=== PATIENT | female | born 1940 | race Caucasian/White ===

== ENCOUNTER 2018-06-06 17:29 | Observation (INO) ==
[2018-06-06 19:26] LABS: BASO# 0.06 X1000 (0.0-0.2); BASO% 0.7 % (0.0-0.8); EOS# 0.25 X1000 (0.0-0.7); HEMATOCRIT 39.5 % (37.0-47.0); HEMOGLOBIN 13.1 g/dL (12.0-16.0); LYMPH# 2.59 X1000 (1.2-3.4); LYMPH% 31.5 % (20.5-51.1); MCH 27.8 PG (27-31); MCHC 33.2 g/dL (33-37); MCV 83.7 FL (81-99); MONO% 7.3 % (1.7-9.3); MPV 10.9 FL (7.4-10.4); NEUT# 4.71 X1000 (1.4-6.5); NEUT% 57.5 % (42.2-75.2); PLT 203 X1000 (130-400); RBC 4.72 XMIL (4.2-5.4); RDW 14.1 % (11.5-14.5); WBC 8.21 X1000 (4.8-10.8)
[2018-06-06 19:33] LABS: INR 1.02; PROTIME 14.2 Seconds (11.0-16.0)
[2018-06-06 19:34] LABS: PTT 29.6 Seconds (22.3-41.8)
[2018-06-06 19:38] LABS: ALB/GLOB RATIO 1.6; CALCIUM 9.7 mg/dL (8.8-10.2); CREATININE 1.2 mg/dL (0.5-0.9); POTASSIUM 4.1 mmol/L (3.5-5.1); TOTAL BILIRUBIN 0.32 mg/dL (0.20-1.00); TOTAL PROTEIN 6.5 g/dL (6.3-8.3)
--- NOTE | 2018-06-06 19:50 | Diag Imaging Result Doc PS360 ---
CHEST-2 VIEWS - 06/06/2018 INDICATION: CHEST PAIN COMPARISON: 02/04/2018 FINDINGS: Stable surgical changes to the heart. Heart size is top normal. Pulmonary vascularity is normal. No infiltrates or edema. No pneumothorax or pleural effusion. Stable mild linear scarring in the lung bases. IMPRESSION: No acute process. Electronically signed by Israel Dwyer 06/06/2018 7:48 PM
--- NOTE | 2018-06-06 21:44 | HISTORY AND PHYSICAL ---
PRIMARY CARE PHYSICIAN: Dr. Alvarez. CHIEF COMPLAINT: Chest pain. HISTORY OF PRESENTING ILLNESS: A 77-year-old female with a history of hypertension, coronary artery disease, diabetes mellitus type 2, and CVA who had presented to emergency department 1-day history of having substernal chest pain. She described it as heaviness and spread throughout her chest pain and was mildly short of breath. She states the symptoms were worsening and subsequently she had come to the emergency department. At the ED she was evaluated and due to her presenting symptoms, it was thought that we will place her for observation for further evaluation management. Time of my examination patient denied any headache, fever, chills, hemoptysis, melena, or any weight changes but complained chest pain, shortness of breath. PAST MEDICAL HISTORY: Includes hypertension, CVA, diabetes mellitus type 2, coronary artery disease, hyperlipidemia. PAST SURGICAL HISTORY: Coronary bypass, abdominal surgeries, hysterectomy, cholecystectomy, right knee replacement. ALLERGIES: No known drug allergies. CURRENT MEDICATIONS: Include aspirin 325 mg p.o. daily, metoprolol 50 mg p.o. daily. SOCIAL HISTORY: She is a former smoker. No history of alcohol or illicit drug use. FAMILY HISTORY: Positive coronary disease mother. REVIEW OF SYSTEMS: Fourteen point review of systems is as in HPI. Other systems negative. PHYSICAL EXAM: GENERAL: Cooperative friendly female, she is resting more comfortably now. VITAL SIGNS: Temperature 98.2 degrees, pulse 115, respiration 18, blood pressure 139/81, saturating 96%. HEENT: Atraumatic, normocephalic. Extraocular movements intact. PERRLA. NECK: No masses. CHEST: Clear to auscultation. CARDIOVASCULAR: Regular rate and rhythm. ABDOMEN: Soft. Positive bowel sounds. EXTREMITIES: No edema. NEUROLOGIC: She is awake, alert, oriented x3. : No bladder distention. SKIN: Warm. LABORATORIES AND STUDIES: WBC is 8.21, hemoglobin 13.1, hematocrit 39.5, platelets 203,000. Sodium 140, potassium 4.1, chloride 103, CO2 22, BUN is 23, creatinine is 1.2, glucose 242, troponin 0.010. ASSESSMENT: A 77-year-old female with a history of hypertension, cerebrovascular accident, diabetes mellitus type 2, coronary artery disease who had presented to emergency department 1-day history of chest pain. She was evaluated in the emergency department. Due to presenting symptoms, she will be placed in observation for further evaluation management. 1. Chest pain. 2. Coronary artery disease. 3. Hypertension. 4. Diabetes mellitus type 2. PLAN: 1. We will admit patient to medical floor with telemetry. 2. Continue with cardiac workup. Check EKG, serial cardiac enzymes. Have patient continue on aspirin. We will use sublingual nitroglycerin and morphine p.r.n. chest pain. 3. We will consult Cardiology. 4. Monitor blood pressure closely. Resume antihypertensive agents. 5. We will put patient on glycemic protocol with sliding scale insulin regimen. Check a hemoglobin A1c. 6. Put patient on DVT prophylaxis SCD. 7. We will continue to follow and reassess. Make further recommendation based on patient's clinical course. cc: Dusty Srivastava MD MTDD
[2018-06-06] MEDS ORDERED: TYLENOL PO PRN (22:20)
[2018-06-06] MEDS ORDERED: NITROGLYCERIN SL PRN (22:20)
[2018-06-06] MEDS ORDERED: ZOFRAN IV PRN (22:20)
[2018-06-07] MEDS: PRILOSEC PO SCH (05:59)
[2018-06-07] MEDS: HUMULIN R SUBQ SCH ×4 (05:59→21:41)
[2018-06-07 06:36] LABS: BASO# 0.06 X1000 (0.0-0.2); BASO% 0.9 % (0.0-0.8); EOS# 0.34 X1000 (0.0-0.7); EOS% 5.3 % (0.0-10.0); HEMATOCRIT 38.3 % (37.0-47.0); HEMOGLOBIN 12.5 g/dL (12.0-16.0); LYMPH# 2.39 X1000 (1.2-3.4); LYMPH% 37.5 % (20.5-51.1); MCH 27.7 PG (27-31); MCHC 32.6 g/dL (33-37); MCV 84.7 FL (81-99); MONO# 0.65 X1000 (0.11-0.59); MONO% 10.2 % (1.7-9.3); MPV 10.4 FL (7.4-10.4); NEUT# 2.94 X1000 (1.4-6.5); NEUT% 46.1 % (42.2-75.2); PLT 199 X1000 (130-400); RBC 4.52 XMIL (4.2-5.4); RDW 14.1 % (11.5-14.5); WBC 6.38 X1000 (4.8-10.8)
[2018-06-07 07:01] LABS: CHOLESTEROL 218 mg/dL (0-200); HDL 39 mg/dL (45-65); LDL 137 mg/dL; TRIGLYCERIDES 212 mg/dL (35-135); VLDL 42 mg/dL
--- NOTE | 2018-06-07 09:44 | EKG Report ---
Test Performed on : 06/06/2018 5:32:14 PM Test Reason : CHEST PAIN Blood Pressure : / mmHG Vent. Rate : 105 BPM Atrial Rate : 105 BPM P-R Int : 166 ms QRS Dur : 084 ms QT Int : 362 ms P-R-T Axes : 015 -27 -06 degrees QTc Int : 478 ms Sinus tachycardia. Inferior infarct , age undetermined Anterolateral infarct , age undetermined Abnormal ECG When compared with ECG of 04-JUN-2018 18:50, (Unconfirmed) Significant changes have occurred Unconfirmed Result
[2018-06-07] MEDS: LOPRESSOR PO SCH ×2 (09:59→13:30)
[2018-06-07] MEDS: ASPIRIN PO SCH ×2 (09:59→13:31)
--- NOTE | 2018-06-07 10:48 | EKG Report ---
Test Performed on : 06/07/2018 10:41:59 AM Test Reason : chest pain Blood Pressure : / mmHG Vent. Rate : 066 BPM Atrial Rate : 066 BPM P-R Int : 160 ms QRS Dur : 090 ms QT Int : 426 ms P-R-T Axes : 016 -12 064 degrees QTc Int : 446 ms Normal sinus rhythm. RSR' or QR pattern in V1 suggests right ventricular conduction delay Inferior infarct (cited on or before 06-MAY-2012) Anterior infarct (cited on or before 19-MAR-2007) Abnormal ECG When compared with ECG of 06-JUN-2018 17:32, (Unconfirmed) Vent. rate has decreased BY 39 BPM Questionable change in initial forces of Anterolateral leads Questionable change in initial forces of Inferior leads Confirmed by Prashanth MCDOWELL, Aravind ([id number]) on 06/08/2018 9:00:20 AM
[2018-06-07 12:08] LABS: URINE SOURCE CLEAN CATCH
[2018-06-07 12:17] LABS: BILIRUBIN URINE NEGATIVE (NEGATIVE); BLOOD URINE NEGATIVE (NEGATIVE); COLOR YELLOW; GLUCOSE URINE NEGATIVE (NEGATIVE); KETONE URINE NEGATIVE (NEGATIVE); LEUKOCYTES URINE NEGATIVE (NEGATIVE); NITRITE URINE NEGATIVE (NEGATIVE); PROTEIN URINE NEGATIVE (NEGATIVE); TURBIDITY URINE CLEAR (CLEAR); UR EPITHELIAL CELLS <10 /HPF (<10); URINE BACTERIA NEGATIVE /HPF; URINE RBC <10 /HPF (<10); URINE WBC <10 /HPF (<10); UROBILINOGEN URINE NORMAL (NORMAL)
--- NOTE | 2018-06-07 12:24 | CARDIOLOGY CONSULTATION ---
DATE: 06/07/2018 IMPRESSION: 1. Episode of tachycardic palpitations accompanied by chest discomfort, lasting approximately 30 minutes and resolving spontaneously. 2. Atherosclerotic coronary artery disease with previous coronary artery bypass grafting in 2017. 3. Hypertension. 4. Type 2 diabetes mellitus. 5. Previous cerebrovascular accident. 6. Atherosclerotic carotid disease. 7. Type 2 diabetes mellitus. RECOMMENDATIONS: 1. Given no evidence of acute myocardial insult, pursue noninvasive cardiac evaluation with stress myocardial perfusion imaging and echocardiography. 2. Continue to monitor rhythm on telemetry. Clinical presentation suspicious for possible atrial fibrillation. Consider 30-day event recorder at discharge. 3. Repeat carotid Doppler study. HISTORY: This 77-year-old white female with past history of previous coronary artery bypass surgery in 2017 hypertension, hyperlipidemia, type 2 diabetes mellitus, previous cerebrovascular accident, and atherosclerotic carotid disease was admitted with chest symptoms. She relates that yesterday after eating midday meal for Easter she was sitting in a chair and started to feel tachycardic palpitations. She subsequent experienced some low-grade bilateral chest discomfort. There was no shortness of breath. Symptoms persisted for about 30 minutes to 45 minutes and then resolved spontaneously. EMS had already been summoned, and she was brought to the emergency room for evaluation. Her chest symptoms had resolved by the time she got here. PAST MEDICAL HISTORY: 1. Atherosclerotic coronary artery disease with previous coronary artery bypass surgery in 2017. Left ventricular ejection fraction has been normal. 2. Previous cerebrovascular accident. 3. Hypertension. 4. Type 2 diabetes mellitus. 5. Hyperlipidemia. 6. Atherosclerotic carotid disease. PAST SURGICAL HISTORY: Also includes hysterectomy, cholecystectomy, and right knee replacement. ALLERGIES: She has no known drug allergies. MEDICATIONS PRIOR TO ADMISSION: As listed. SOCIAL HISTORY: She is single and retired. She lives at home. She has history of previous cigarette use in the past, but no longer smokes. She does not use alcohol. FAMILY HISTORY: Negative for premature coronary disease. REVIEW OF SYSTEMS: Pulmonary: Noncontributory. Gastrointestinal: Noncontributory. Constitutional: Noncontributory. Remainder of review of systems negative/noncontributory with 14 total systems reviewed. PHYSICAL EXAMINATION: Exam reveals an obese older white female in no distress on room air. Blood pressure 146/70, heart rate 64 and regular.HEENT: Extraocular movements appear to be intact. Mucous membranes are moist. Neck is supple without jugular venous distention. Carotid bruits could not be appreciated. Chest is clear to auscultation. Cardiac exam reveals a regular rate and rhythm without appreciable murmur,rub, or gallop. Abdomen is soft. Bowel sounds are normal. Extremities are without edema. Neurologic exam reveals her to be alert and fully oriented. Speech is fluent. She moves all 4 extremities equally well. Skin is warm and dry. Psychiatric exam reveals her mood to be appropriate. DIAGNOSTIC STUDIES: A 12-lead EKG demonstrates sinus rhythm. RSR prime in lead V1 suggests right ventricular conduction delay, inferior infarct of undetermined age. Laboratory data includes a white blood cell count 6.38 hematocrit 38.3, hemoglobin 12.5, platelet count 199,000. Sodium 140, potassium 4.1, chloride 103, carbon dioxide 22, BUN 23, creatinine 1.2, glucose 242. CPK initially 57, follow-up CPK 49, troponin T 0.017, follow-up troponin T less than 0.01. Triglycerides 212, cholesterol 218, LDL cholesterol 137, HDL cholesterol 39. cc: MD Lawrence Rodriguez MD
[2018-06-07] MEDS ORDERED: LEXISCAN ONE (12:55)
--- NOTE | 2018-06-07 16:29 | Diag Imaging Result Document ---
PROCEDURE NAME: MYOCARDIAL PERF SCAN, STR/REST - 06/07/2018 LEXISCAN CARDIOLITE STRESS TEST: Lexiscan was infused per standard protocol. There was no chest pain. Stress electrocardiogram was negative for ischemia. 12.3 mCi of Cardiolite was injected for the rest phase. 36.9 mCi of Cardiolite was injected for the stress phase. Gated SPECT images were obtained in standard views. Images revealed normal left ventricular cavity size. There is significant breast as well as diaphragmatic attenuation. There is low-grade small-sized fixed defect in the left ventricular apex suggestive of attenuation defect. There is no definite evidence of ischemia. Left ventricular ejection fraction 73%. Left ventricular cavity size was normal. CONCLUSIONS: 1. No chest pain. 2. Negative Lexiscan stress electrocardiogram. 3. Myocardial perfusion images revealed no definitive evidence of ischemia. 4. There is low-grade small-sized fixed defect in the left ventricular apex suggestive of attenuation defect. 5. Left ventricular ejection fraction 73%. cc: MD Rula Godwin PA
[2018-06-07] MEDS ORDERED: LIPITOR PO SCH (21:00)
--- NOTE | 2018-06-07 21:34 | PROGRESS NOTE ---
DATE: 06/07/2018 SUBJECT: A 77-year-old, white female, admitted to the hospital on 06/06 for chest pain going to the shoulder. Patient had a bypass 2 years ago. She was here a few months ago for a small bowel obstruction due to adhesions. The patient is currently sleeping well. Interval history was reviewed. PAST MEDICAL HISTORY: Reviewed. PAST SURGICAL HISTORY: Reviewed. MEDICINES: Reviewed. ALLERGIES: Not known. PHYSICAL EXAMINATION: Vital Signs: Temperature is 98.2, pulse is 59, blood pressure is stable and the patient is pain free. Chest: Clear. Heart: Sounds are regular. Abdomen: Belly is soft, nontender. Neurologic: No neurological deficits. INVESTIGATIONS: CBC: White cell count 6.3, hematocrit 38, platelets 199. PT/INR is normal. SMA- 7: BUN 50, 23, creatinine 1.2, glucose 160. Cardiac enzymes are negative. Triglycerides 212, cholesterol 218, LDL 137, HDL 39. Urinalysis is clear. ASSESSMENT AND PLAN: A 77-year-old, white female, admitted to the hospital with: 1. Chest pain, status post bypass surgery, ruled out for myocardial infarction. Schedule for stress test. Based on that, further recommendations follow. Continue on aspirin, beta blockers. 2. Hyperlipidemia on Lipitor. Keep the LDL less than 100. Currently, LDL is 137. We will discuss with the patient. EKG: Normal sinus with Q-waves in inferior leads and V1 and V2. Appreciated Cardiology consult. Follow up on echocardiography. Dr. Carter consult wants to repeat carotid Doppler studies and also 30 day loop event at discharge. Will follow up. LEVEL OF DOCUMENTATION: 35 minutes. cc: Lawrence Alvarez MD MTDD
[2018-06-08] MEDS: HUMULIN R SUBQ SCH ×2 (06:14→12:02)
[2018-06-08] MEDS: PRILOSEC PO SCH (06:16)
[2018-06-08] MEDS ORDERED: ASPIRIN PO SCH (09:00)
[2018-06-08] MEDS: LOPRESSOR PO SCH (09:51)
[2018-06-08 12:55] VITALS: BP 204/90
[2018-06-08] MEDS ORDERED: PRINIVIL PO ONE (13:04)
--- NOTE | 2018-06-08 17:31 | Carotid Study ---
DATE: 06/07/2018 PROCEDURE: Bilateral carotid duplex. REQUESTING PHYSICIAN: Dr. Alvarez. INTERPRETING PHYSICIAN: Dr. Coral Gonzáles. TECH: [employer] INDICATIONS: Carotid artery disease. EXAM FOR COMPARISON: 05/07/2012. OBSERVED DATA RIGHT LEFT Brachial Blood Pressure Carotid Pulse Bruits: Carotid/Sub DIAGRAM OF ULTRASOUND IMAGING R L RIGHT INT EXT INT EXT LEFT Naresh (cm/s) Naresh (cm/s) Subclavian 141/0 Subclavian 165/1 CCA Proximal 89/12 CCA Proximal 81/13 CCA Distal 83/13 CCA Distal 125/17 Bulb 73/14 Bulb 146/21 ICA Proximal 110/6 ICA Proximal 160/27 ICA Mid 83/7 ICA Mid 64/15 ICA Distal 99/7 ICA Distal 62/21 ECA 117/17 ECA 142/13 Vertebral 63/6 A Vertebral 90/19 A ICA/CCA Ratio 1.23 ICA/CCA Ratio 1.28 % Stenosis 40-59% % Stenosis 60-79% FINDINGS: There is again noted heterogeneous plaques in the bilateral carotid bulbs extending to the proximal internal carotid artery and atherosclerotic changes noted throughout the left common carotid artery. However, the velocities have worsened and on the right this would correlate to a 40-59% and on the left a 60-79%. SUMMARY: Bilateral carotid artery atherosclerotic disease with moderate stenosis on the right and a severe stenosis on the left. cc: MD Rula Rich PA Jagan Reddy, MD
--- NOTE | 2018-06-08 23:37 | ECHO REPORT ---
ORDER DATE: 06/07/2018 MEASUREMENTS: Left ventricular internal diameter in diastole 4.1, septal thickness 1.8, left ventricular internal diameter in systole 2.8. SUMMARY: 1. Fair quality study. 2. Aortic valve is trileaflet and opens normally on 2-dimensional images. Peak gradient across the aortic valve is less than 10 mmHg. There is trace aortic regurgitation. Mitral and tricuspid valves are without evidence of structural abnormality while pulmonic valve is not well demonstrated. There is mild mitral regurgitation and trace tricuspid regurgitation. Aortic root is normal in size. 3. Normal left ventricular chamber size with moderate concentric left hypertrophy is demonstrated. Estimated left ejection fraction appears to be at least 70% with left ventricle appearing hyperdynamic. No focal wall motion abnormalities evident. Doppler suggests grade 1 left ventricular diastolic dysfunction. Left atrium is mildly enlarged. Right atrium and right ventricle are grossly normal in size. 4. No pericardial effusion. 5. Appearance of inferior vena cava suggests normal central venous pressure. cc: MD Rula Rodriguez PA Jagan Reddy, MD
--- NOTE | 2018-06-08 23:57 | DISCHARGE SUMMARY ---
ADMISSION DATE: 06/06/2018 DISCHARGE DATE: 06/08/2018 DISCHARGING DIAGNOSES: 1. Atypical chest pain. Stable cardiac disease. 2. Palpitations, rule out cardiac arrhythmias. 3. Pickwickian syndrome, type 2 diabetes, hypertension, hyperlipidemia, osteoarthritis, diverticulosis, history of lacunar stroke, coronary artery disease status post bypass surgery. 4. 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 CONSULTS: Dr. Izaiah Carter. PROCEDURES: 1. Myocardial perfusion scan, no reversible defects. Ejection fraction 75%. 2. Carotid Doppler's, moderate stenosis bilaterally 40 to 60 percent, maybe 60 to 70 percent on the left ICA proximal area. BRIEF HISTORY: Please see the H and P that was done. In brief, she is a 77-year-old white female with known history of CAD, status post bypass surgery 2 years ago, came in with chest pain with palpitations. The patient was pain-free. HOSPITAL COURSE: The patient was monitored in telemetry, did not show any evidence of cardiac arrhythmias. Cardiac enzymes were negative. Dr. Carter was consulted. Subsequent perfusion scan is negative. The patient is anxious to go home. Dr. Carter recommended 30-day loop monitor to rule out cardiac arrhythmias. The patient is now taking Lipitor to keep the LDL less than 100, and carotid Doppler showed moderate stenosis bilaterally, slightly worse on the left side. The blood pressure is running high. LABS: CBC: White cell count 6.3, hematocrit 38.3, platelets 199,000. SMA-7: BUN 23, creatinine 1.2. Glucose 160. Cardiac enzymes were negative. Triglycerides 212, cholesterol 218, LDL 137. Urinalysis is clear. Chest x-ray, no acute disease, linear scarring in the right upper lobe which is stable. DISCHARGE INSTRUCTIONS: The patient was discharged home with the following instructions: 1. Blood pressure is running high. Will follow up on outpatient blood pressure. Continue on metoprolol 50 daily, aspirin 325 daily, lisinopril 10 mg daily, Lipitor 40 daily to keep the LDL less than 70, metformin 1000 p.o. b.i.d. diclofenac as needed for arthritis, 2. Outpatient 30-day loop monitor for rule out cardiac arrhythmias. 3. Follow up on carotid Doppler's in 6 months for carotid stenosis, left worse than the right side. cc: MD Izaiah Azevedo MD
== END 2018-06-08 14:05 | disposition home or self-care (01) ==
LOC: SUPCPDRO → ED 17:29 → SUATTDRO 21:51 → 3N 21:51 → INTOOBSV 21:51
PROVIDERS: ADMIT Internal Medicine; ATTEND Internal Medicine
CPT/HCPCS: 71020; 71046; 78452; 80053; 80061; 81001; 82550; 82948; 83880; 84484; 85025; 85610; 85730; 93005; 93010; 93017; 93306; 93880; 99285; A9270; A9500; J2785; XXXXX

== ENCOUNTER 2019-02-06 16:12 | Inpatient (IN) ==
--- NOTE | 2019-02-06 16:35 | PROVIDER DOCUMENTATION ---
HPI-Screening - General Chief Complaint: Abdominal Pain Stated Complaint: ABD PAIN Time Seen by Provider: 02/06/19 16:24 Source: patient, family Allergies/Adverse Reactions: Allergies Allergy/AdvReac Type Severity Reaction Status Date / Time No Known Allergies Allergy Verified 10/13/18 20:56 Home Medications: Home Medication List Medication Instructions Recorded Confirmed Last Taken Type Aspirin 325 mg PO DAILY 02/03/18 06/06/18 Unknown History Metoprolol Tartrate 50 mg PO DAILY 02/03/18 06/06/18 02/02/18 07:00 History ATORVAstatin [Lipitor] 40 mg PO QHS #30 tab 06/08/18 Unknown Rx LISINOpril [Prinivil] 10 mg PO DAILY #30 tab 06/08/18 Unknown Rx Metformin HCl 1,000 mg PO BID #60 tab 06/08/18 Unknown Rx Azithromycin 250 mg PO DAILY #4 tab 10/13/18 Unknown Rx Benzonatate [Tessalon Perle] 100 mg PO TID PRN #21 cap 10/13/18 Unknown Rx Fluticasone 50 Mcg Nasal [place] 1 spray INTRANASAL DAILY #1 bottle 10/13/18 Unknown Rx [Flonase] HPI: 78yof present to ER with c/o acute onset of abd pain [address] Pt reports hx of SBO. Denies vomiting or diarrhea. Reports last BM this am. Denies fever. Physical Exam-Screening - PHYSICAL EXAM-ADULT Initial Vital Signs Reviewed: Yes - CONSTITUTIONAL General Appearance: alert, mild distress, anxious - RESPIRATORY Respiratory: lungs clear, normal breath sounds, no respiratory distress, no accessory muscle use - CARDIOVASCULAR Cardiovascular: regular rate, rhythm - GASTROINTESTINAL (ABDOMEN) Abdominal Exam: distended, tenderness (diffuse). negative: guarding, rigid, rebound - SKIN Integumentary: normal color, diaphoresis, warm - PSYCHIATRIC Psych/Mental Status: oriented x 3 Screening Depart - Departure ED Screening Disposition: Continued in ED for Treatment Date of Disposition Decision: 02/06/19 Time of Disposition Decision: 16:34 DIAGNOSIS: Abdominal pain Qualifiers: Abdominal location: generalized Qualified Code(s): R10.84 - Generalized abdominal pain Referrals and Follow-Ups: Kelvin Alvarez MD [Primary Care Provider] - Attestation - Physician/ JHON Attestation Patient care was provided by Advanced Practice Provider:: Yes Advanced Practice Provider:: Shanell Hu Advanced Practice Provider documentation review:: The Mid-level provider documentation, treatment plan and medical decision making was reviewed by the physician who agrees with all treatment and medical decision making by the MLP. The physician spent face to face time with patient:: No Advanced Practice Provider documentation review:: Supervising physician onsite and consulted in the evaluation and care of this patient. The physician did not have a face to face encounter with the patient.
[2019-02-06 16:48] LABS: BASO# 0.06 X1000 (0.0-0.2); BASO% 0.6 % (0.0-0.8); EOS# 0.29 X1000 (0.0-0.7); EOS% 2.8 % (0.0-10.0); HEMATOCRIT 40.3 % (37.0-47.0); HEMOGLOBIN 13.3 g/dL (12.0-16.0); IMM GRAN# 0.03 X1000 (0.0-0.04); IMM GRAN% 0.3 % (0.0-0.5); LYMPH# 3.21 X1000 (1.2-3.4); MCH 28.5 PG (27-31); MCV 86.3 FL (81-99); MONO# 0.66 X1000 (0.11-0.59); MONO% 6.4 % (1.7-9.3); MPV 10.4 FL (7.4-10.4); NEUT# 6.11 X1000 (1.4-6.5); NEUT% 58.9 % (42.2-75.2); PLT 226 X1000 (130-400); RBC 4.67 XMIL (4.2-5.4); RDW 13.6 % (11.5-14.5); WBC 10.36 X1000 (4.8-10.8)
[2019-02-06 17:01] LABS: ALB/GLOB RATIO 1.4; ALBUMIN 3.9 g/dL (3.5-5.0); CALCIUM 9.9 mg/dL (8.8-10.2); CREATININE 1.2 mg/dL (0.5-0.9); POTASSIUM 4.2 mmol/L (3.5-5.1); TOTAL BILIRUBIN 0.43 mg/dL (0.20-1.00); TOTAL PROTEIN 6.7 g/dL (6.3-8.3)
[2019-02-06] MEDS ORDERED: MORPHINE IV ONE (17:40)
[2019-02-06] MEDS ORDERED: NS 1,000 ML IV ONE (17:40)
[2019-02-06] MEDS ORDERED: ZOFRAN IV ONE ×2 (17:40→21:44)
--- NOTE | 2019-02-06 18:39 | Diag Imaging Result Doc PS360 ---
EXAM: CT ABDOMEN/PELVIS W/O CONTRAST INDICATION: abd pain, r/o sBO TECHNIQUE: This exam was performed using automated exposure control, adjustment of mA or kV according to patient size, and/or use of iterative reconstruction technique. COMPARISON: 02/03/2018 FINDINGS: There has been a prior cholecystectomy. There are multiple calcified granulomata in the liver and spleen. The liver and spleen are essentially unremarkable, otherwise. The pancreas and adrenal glands are unremarkable. There are multiple stable small renal cysts bilaterally. There is a nonobstructing intrarenal stone in the right kidney that is stable. 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 There is no hydronephrosis. The urinary bladder is only slightly distended and is unremarkable, otherwise. There has been a prior hysterectomy. There are a few uncomplicated colonic diverticula. There has been a prior partial colectomy. There is no evidence of colonic obstruction. There are a few mildly distended loops of small bowel with air-fluid levels in the mid and upper abdomen that are nonspecific. Consider ileus versus partial small bowel obstruction. The distal small bowel is decompressed. No significant focal inflammatory change, free abdominal gas, or significant free fluid is identified. There is no evidence of acute osseous abnormality. IMPRESSION: 1.Several mildly distended loops of small bowel with air-fluid levels in the mid and upper abdomen bilaterally that are nonspecific. Consider ileus versus partial bowel obstruction. 2.Other incidental/nonacute findings detailed above. Electronically signed by Ulises Branham 02/06/2019 6:36 PM
--- NOTE | 2019-02-06 19:17 | PROVIDER DOCUMENTATION ---
This chart was entered by Gloria Garcia Scribe, acting as scribe for Saturnino Scott MD. HPI-Abdominal Pain/GI Problem - General Chief Complaint: Abdominal Pain Stated Complaint: ABD PAIN Time Seen by Provider: 02/06/19 16:24 Source: patient Allergies/Adverse Reactions: Patient Allergies Allergy/AdvReac Type Severity Reaction Status Date / Time No Known Allergies Allergy Verified 10/13/18 20:56 Home Medications: Home Medication List Medication Instructions Recorded Confirmed Last Taken Type Aspirin 325 mg PO DAILY 02/03/18 06/06/18 Unknown History Metoprolol Tartrate 50 mg PO DAILY 02/03/18 06/06/18 02/02/18 07:00 History ATORVAstatin [Lipitor] 40 mg PO QHS #30 tab 06/08/18 Unknown Rx LISINOpril [Prinivil] 10 mg PO DAILY #30 tab 06/08/18 Unknown Rx Metformin HCl 1,000 mg PO BID #60 tab 06/08/18 Unknown Rx Azithromycin 250 mg PO DAILY #4 tab 10/13/18 Unknown Rx Benzonatate [Tessalon Perle] 100 mg PO TID PRN #21 cap 10/13/18 Unknown Rx Fluticasone 50 Mcg Nasal [place] 1 spray INTRANASAL DAILY #1 bottle 10/13/18 Unknown Rx [Flonase] - History of Present Illness-ABD Nature of Presenting Problems: 78 y/o female presents to ED with generalized abdominal pain and nausea onset this afternoon. Pt denies vomiting, diarrhea, fever, chest pain, SOB, or urinary symptoms. Pt reports hx SBO. Pt states last bowel movement was this morning. Pt is alert and oriented. Abdominal Pain Onset Location: reports: generalized abdomen Pain Radiation: reports: no radiation Quality of Pain: reports: aching Severity in ED: reports: moderate Onset/Duration: reports: this afternoon Timing: reports: still present Activities at Onset: reports: none Exposure to sick contacts?: No Modifying Factors: worse with: palpation Associated Symptoms: reports: nausea, other (generalized abdominal pain) Last BM: this morning Dark Stools Present?: reports: none noticed Rectal Bleeding: reports: none Rectal Pain: reports: none Similar Symptoms Previously?: Yes (hx SBO) Recently seen or treated by another doctor?: No Review of Systems - Adult - REVIEW OF SYSTEMS - ADULT Constitutional: denies: chills, fever Eyes: reports: no symptoms reported Ears, Nose, Mouth & Throat: reports: no symptoms reported Cardiovascular: denies: chest pain, palpitations Respiratory: denies: cough, shortness of breath Gastrointestinal: reports: abdominal pain, nausea. denies: diarrhea, vomiting Genitourinary: reports: no symptoms reported Musculoskeletal: reports: no symptoms reported Integumentary: reports: no symptoms reported Neurological: reports: no symptoms reported Psychiatric: reports: no symptoms reported Endocrine: reports: no symptoms reported Hematologic/Lymphatic: reports: no symptoms reported Allergic/Immunologic: reports: no symptoms reported All Other Systems: Reviewed and Negative Past History - Adult - PAST MEDICAL HISTORY-ADULT Review of Records: reports: Old Records Reviewed, Nursing Assessment Review, Medications Reviewed Major Childhood Illnesses: reports: denies history Cardiovascular: reports: HTN, hyperlipidemia, other (Varicose Veins; paracarditis) Respiratory: reports: asthma, other (Chronic right upper lobe scar) Gastrointestinal: reports: denies history, other (perforated bowel) Obstetrical/Gynecological: reports: denies history Genitourinary: reports: incontinence Musculoskeletal: reports: denies history Neurological: reports: CVA Psychiatric: reports: denies history Endocrine/Immune: reports: Diabetes, other (autoimmune nodular vascullitis) Other Conditions: reports: denies history - PRIOR SURGERIES/PROCEDURES Surgical/Procedure History: reports: cholecystectomy, hysterectomy, bowel pires rgery (Colostomy that has been reversed), orthopedic (extremity) (Bilateral carpal tunnel syndrome), joint replacement (TKR), other (open heart) - IMMUNIZATION STATUS Childhood Immunizations: See Nurse Assessment Flu Vaccine: See Nurse Assessment - FAMILY HISTORY Family History: reviewed, not pertinent - SOCIAL HISTORY Smoking: quit greater than 1 year Substance Use: none/never Alcohol Use Frequency: never Living Situation: family Physical Exam-General - PHYSICAL EXAM-ADULT Initial Vital Signs Reviewed: Yes - CONSTITUTIONAL General Appearance: appears well, alert, moderate distress - EYES Eyes: PERRL/EOMI, pink conjunctivae - HEAD, EARS, NOSE, MOUTH & THROAT HENMT: normocephalic/atraumatic, moist mucous membranes, normal ENT inspection - NECK Neck: non-tender, full range of motion - RESPIRATORY Respiratory: chest non-tender, lungs clear, normal breath sounds - CARDIOVASCULAR Cardiovascular: normal peripheral pulses, regular rate, rhythm - GASTROINTESTINAL (ABDOMEN) Abdominal Exam: normal bowel sounds, soft, tenderness (diffuse), other (healed incisions noted). negative: guarding, rigid - MUSCULOSKELETAL Back Exam: normal inspection, no CVA tenderness, no vertebral tenderness Extremity: normal range of motion, non-tender - SKIN Integumentary: normal color, warm/dry - NEUROLOGIC Neurologic: grossly normal - PSYCHIATRIC Psych/Mental Status: normal mood/affect, normal thought content, normal thought process, oriented x 3 Progress - PLAN OF CARE/RESULTS Progress/Plan/Lab Results: Vital Signs - 8 hr 02/06/19 16:17 Temperature 97.9 F Pulse Rate 61 Respiratory Rate 18 Blood Pressure 160/73 O2 Sat by Pulse Oximetry 92 L Laboratory Results - last 24 hr 02/06/19 02/06/19 16:42 16:42 WBC 10.36 RBC 4.67 Hgb 13.3 Hct 40.3 MCV 86.3 MCH 28.5 MCHC 33.0 RDW Std Deviation 13.6 Plt Count 226 MPV 10.4 Immature Gran % (Auto) 0.3 Neut % (Auto) 58.9 Lymph % (Auto) 31.0 Upson % (Auto) 6.4 Eos % (Auto) 2.8 Baso % (Auto) 0.6 Immature Gran # (Auto) 0.03 Neut # (Auto) 6.11 Lymph # (Auto) 3.21 Upson # (Auto) 0.66 H Eos # (Auto) 0.29 Baso # (Auto) 0.06 Sodium 138 Potassium 4.2 Chloride 99 Carbon Dioxide 23 L Anion Gap 16 BUN 24 H Creatinine 1.2 H Estimated GFR/1.73 m2 43 BUN/Creatinine Ratio 20 Glucose 159 H Calculated Osmolality 283 Calcium 9.9 Total Bilirubin 0.43 AST 10 ALT 7 L Alkaline Phosphatase 89 Total Protein 6.7 Albumin 3.9 Globulin 2.8 Albumin/Globulin Ratio 1.4 Lipase 18 Orders Category Date Time Status CT ABDOMEN/PELVIS W/O CONTRAST [CT] Stat Exams 02/06/19 17:36 Taken CBC WITH DIFF [HEME] Stat Lab 02/06/19 16:42 Completed COMPREHENSIVE METABOLIC PANEL [CHEM] Stat Lab 02/06/19 16:42 Completed LIPASE [CHEM] Stat Lab 02/06/19 16:42 Completed UA [URINALYSIS W/POSS RFLX CULT] [URINALYSIS] Stat Lab 02/06/19 16:25 Uncollected 0.9% Sodium Chloride Inj [Ns] 1,000 ml Med 02/06/19 17:40 Active IV 999 mls/hr Morphine Med 02/06/19 17:40 Discontinued 4 mg IV NOW ONE Ondansetron [Zofran] Med 02/06/19 17:40 Discontinued 4 mg IV NOW ONE Result Diagrams: 02/06/19 16:42 02/06/19 16:42 - REASSESSMENT Reassessment #1 Time Reassessed: 19:00 Status: improving (abdominal pain has improved, patient is comnfortable. Discussed CT report. Patient declined NG tube) - CT/MRI 1 CT Study: Abdomen, Pelvis Impression: See EMR Report ([facility] - [address] , [address], [place] [address] [facility] - [address] [place] [address] Department of Imaging Patient: ANGUS [facility]FO[facility] Date: 02/06/19#: [id number] : 9ADM Status: PRE ERAcct#: [id number] Age/Sex: 78/FRoom/Bed: Loc: ED Ordering Physician: Shanell Hu Family Physician: Kelvin Alvarez MD Reason for Procedure: abd pain, r/o sBO ___ Signed EXAM: CT ABDOMEN/PELVIS W/O CONTRAST INDICATION: abd pain, r/o sBO TECHNIQUE: This exam was performed using automated exposure control, adjustment of mA or kV according to patient size, and/or use of iterative reconstruction technique. COMPARISON: 02/03/2018 FINDINGS: There has been a prior cholecystectomy. There are multiple calcified granulomata in the liver and spleen. The liver and spleen are essentially unremarkable, otherwise. The pancreas and adrenal glands are unremarkable. There are multiple stable small renal cysts bilaterally. There is a nonobstructing intrarenal stone in the right kidney that is stable. 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 There is no hydronephrosis. The urinary bladder is only slightly distended and is unremarkable, otherwise. There has been a prior hysterectomy. There are a few uncomplicated colonic diverticula. There has been a prior partial colectomy. There is no evidence of colonic obstruction. There are a few mildly distended loops of small bowel with air-fluid levels in the mid and upper abdomen that are nonspecific. Consider ileus versus partial small bowel obstruction. The distal small bowel is decompressed. No significant focal inflammatory change, free abdominal gas, or significant free fluid is identified. There is no evidence of acute osseous abnormality. IMPRESSION: 1.Several mildly distended loops of small bowel with air-fluid levels in the mid and upper abdomen bilaterally that are nonspecific. Consider ileus versus partial bowel obstruction. 2.Other incidental/nonacute findings detailed above. Electronically signed by Ulises Branham 02/06/2019 6:36 PM 02/06/19 1836 In terpreting Physician: Ulises Branham MD Dictated Date/Time: 02/06/19 1829 cc: Shanell Hu; Kelvin Alvarez MD) - CONSULTS/PCP/HOSPITALIST Notification #1 *Consult/PCP/Hospitalist*: Dr. Srivastava Time Discussed: 19:11 Reason/Comments: Ileus v. SBO Consult Disposition: Admit #2 Consult: Dr Swann Time Discussed: 19:17 Reason/Comments: Will see patient later today or tomorrow. Departure - Departure Date of Disposition Decision: 02/06/19 Time of Disposition Decision: 19:11 DIAGNOSIS: SBO (small bowel obstruction) Abdominal pain Qualifiers: Abdominal location: generalized Qualified Code(s): R10.84 - Generalized abdo candace pain Disposition: ADMITTED INPATIENT 09 Certified Medical Emergency: Emergent Condition: Fair Referrals and Follow-Ups: Kelvin Alvarez MD [Primary Care Provider] - - Critical Care Note This patient required my direct & personal management of CC.: No Attestation - Physician/ JHON Attestation Patient care was provided by Advanced Practice Provider:: Yes Advanced Practice Provider:: Shanell Hu Advanced Practice Provider documentation review:: The Mid-level provider documentation, treatment plan and medical decision making was reviewed by the physician who agrees with all treatment and medical decision making by the MLP. The physician spent face to face time with patient:: Yes Advanced Practice Provider documentation review:: Supervising physician onsite and consulted in the evaluation and care of this patient. The physician did have a face to face encounter with the patient. This chart was documented by the indicated scribe, (Gloria Garcia, Ephraim) and accurately reflects the services I performed and decisions made by me, Saturnino Scott MD, as attested by the provider's signature.
[2019-02-06 21:08] LABS: URINE SOURCE CLEAN CATCH
[2019-02-06 21:10] LABS: BILIRUBIN URINE NEGATIVE (NEGATIVE); BLOOD URINE NEGATIVE (NEGATIVE); COLOR YELLOW; GLUCOSE URINE TRACE mg/dL (NEGATIVE); KETONE URINE TRACE mg/dL (NEGATIVE); LEUKOCYTES URINE NEGATIVE (NEGATIVE); NITRITE URINE NEGATIVE (NEGATIVE); PROTEIN URINE NEGATIVE (NEGATIVE); SP GRAVITY URINE 1.012; TURBIDITY URINE CLEAR (CLEAR); UR EPITHELIAL CELLS <10 /HPF (<10); URINE BACTERIA NEGATIVE /HPF; URINE RBC <10 /HPF (<10); URINE WBC <10 /HPF (<10); UROBILINOGEN URINE NORMAL (NORMAL)
[2019-02-06] MEDS ORDERED: NS 1,000 ML IV SCH (23:03)
--- NOTE | 2019-02-07 02:42 | HISTORY AND PHYSICAL ---
PRIMARY CARE PHYSICIAN: Dr. Alvarez. CHIEF COMPLAINT: Abdominal pain. HISTORY OF PRESENTING ILLNESS: This is an 78-year-old elderly female with a history of hypertension, CVA, diabetes mellitus type 2, coronary artery disease, who had presented to the emergency department with a 1-day history of having worsening abdominal pain and nausea. She described it as sharp and at times was also cramping. She states the symptoms were worsening. Subsequently, she had come to the emergency department. In the ED, she was evaluated. She had imaging done which did show possible partial bowel obstruction versus ileus. Due to her presenting symptoms, she will require admission for further management. At the time of my examination, patient denied any headache, fever, chills, chest pain, shortness of breath, but complained of moderate abdominal pain and discomfort. The patient also states that she has not had a bowel movement or any flatus. PAST MEDICAL HISTORY: hypertension, CVA, diabetes mellitus type 2, coronary artery disease, hyperlipidemia. PAST SURGICAL HISTORY: Multiple abdominal surgeries, coronary artery bypass, hysterectomy, cholecystectomy, right knee replacement. ALLERGIES: No known drug allergies. CURRENT MEDICATIONS: Aspirin 325 mg p.o. daily, atorvastatin 40 mg p.o. at bedtime, lisinopril 20 mg p.o. daily, metformin 1000 mg p.o. b.i.d., metoprolol 25 mg p.o. daily. SOCIAL HISTORY: She is a former smoker. No history of alcohol or illicit drug use. FAMILY HISTORY: Positive for coronary artery disease in mother. REVIEW OF SYSTEMS: Fourteen point review of systems listed as in HPI. Other systems negative. PHYSICAL EXAMINATION: GENERAL: Cooperative, friendly female. She is resting more comfortably now. VITAL SIGNS: Temperature 97.9 degrees, pulse 61, respiration 18, blood pressure 160/73. HEENT: Atraumatic, normocephalic. Extraocular movements intact. PERRLA. NECK: Supple. CHEST: Clear to auscultation. CARDIOVASCULAR: Regular rate and rhythm. ABDOMEN: Soft, diffuse tenderness. EXTREMITIES: No edema. NEUROLOGIC: She is awake, alert, oriented x3. GENITOURINARY: No bladder distention. SKIN: Warm. LABORATORIES AND STUDIES: WBC 10.36, hemoglobin 13.3, hematocrit 40.3, platelets 226,000. Sodium 138, potassium 4.2, chloride 99, CO2 is 23, BUN is 24, creatinine is 1.2, glucose is 159. Abdominal and pelvis CT shows several mildly distended loops of small bowel with air-fluid levels in the mid and upper abdomen which may represent ileus versus partial bowel obstruction. ASSESSMENT: This is an 78-year-old elderly female with a history of hypertension, cerebrovascular accident, diabetes mellitus type 2 and coronary artery disease, who had presented to emergency department with 1-day history of worsening abdominal pain. She was evaluated in the emergency department. She had imaging done which did raise the suspicion of ileus versus partial bowel obstruction. Due to her presenting symptoms, she will require admission for further management. 1. Abdominal pain. 2. Suspected bowel obstruction. 3. Hypertension. 4. Diabetes mellitus type 2. PLAN: 1. We will admit patient to medical floor with telemetry. 2. We will keep patient NPO. Continue with gentle hydration, antiemetics and pain control. 3. We will consult General Surgery. 4. Monitor blood pressure closely. 5. Monitor blood glucose and put patient on sliding scale insulin regimen. 6. Put patient on DVT prophylaxis with SCD. 7. We will continue to follow, reassess and make further recommendation based on patient's clinical course. cc: Dusty Srivastava MD MTDD
[2019-02-07 06:42] LABS: BASO# 0.05 X1000 (0.0-0.2); BASO% 0.5 % (0.0-0.8); EOS# 0.08 X1000 (0.0-0.7); EOS% 0.8 % (0.0-10.0); HEMATOCRIT 40.7 % (37.0-47.0); HEMOGLOBIN 12.8 g/dL (12.0-16.0); IMM GRAN# 0.02 X1000 (0.0-0.04); IMM GRAN% 0.2 % (0.0-0.5); LYMPH% 23.9 % (20.5-51.1); MCH 27.9 PG (27-31); MCHC 31.4 g/dL (33-37); MCV 88.7 FL (81-99); MONO# 0.73 X1000 (0.11-0.59); MONO% 7.3 % (1.7-9.3); MPV 10.6 FL (7.4-10.4); NEUT# 6.76 X1000 (1.4-6.5); NEUT% 67.3 % (42.2-75.2); PLT 195 X1000 (130-400); RBC 4.59 XMIL (4.2-5.4); RDW 13.6 % (11.5-14.5); WBC 10.04 X1000 (4.8-10.8)
[2019-02-07 07:18] LABS: CALCIUM 9.4 mg/dL (8.8-10.2); CREATININE 1.2 mg/dL (0.5-0.9); POTASSIUM 4.5 mmol/L (3.5-5.1)
[2019-02-07] MEDS ORDERED: TORADOL IV PRN (08:32)
[2019-02-07] MEDS ORDERED: ZOFRAN IV PRN (08:32)
[2019-02-07] MEDS: HUMULIN R SUBQ SCH ×4 (11:13→21:02)
[2019-02-07] MEDS: DULCOLAX PR SCH (11:16)
[2019-02-07] MEDS: LOVENOX SUBQ SCH (11:16)
[2019-02-07] MEDS: SODIUM CHLORIDE 0.9% INJ SCH (11:16)
[2019-02-07] MEDS: PROTONIX IV SCH (11:16)
--- NOTE | 2019-02-07 15:37 | GENERAL SURGERY CONSULTATION ---
DATE: 02/07/2019 HISTORY: This is a pleasant 78-year-old, who yesterday developed severe crampy pain in and nausea. She had previous episodes similar to this. Today however she feels much better. She has passed flatus and her bowels had moved and her symptoms seemed to resolve. She has a history of multiple abdominal operations. PAST MEDICAL HISTORY: Pertinent for hypertension, stroke, diabetes type 2, coronary artery disease, hyperlipidemia. PREVIOUS SURGERY: Coronary bypass, hysterectomy, cholecystectomy, right knee replacement. USUAL MEDICATIONS INCLUDE: Aspirin, atorvastatin, lisinopril, metformin, metoprolol. ALLERGIES: She has no known drug allergies. SOCIAL HISTORY: She is a former smoker. Denies alcohol or drug use. FAMILY HISTORY: Pertinent for coronary disease. REVIEW OF SYSTEMS: Noted above in the history of present illness. Otherwise the other 10 sub systems are negative. PHYSICAL EXAMINATION: Vital Signs: She is afebrile. Heart rate 79, blood pressure 138/73. No cervical adenopathy bilateral breath sounds. Heart: Regular rate and rhythm. Abdomen: Soft, nontender. Bowel sounds are hypoactive. No hernia is palpated. She is awake alert and oriented. LABS: White count 10,000. CT scan is reviewed and shows some partially dilated loops of small bowel but no obvious bowel obstruction. There is stool noted within her colon. ASSESSMENT: Partial small-bowel obstruction. Now she is apparently relieved. We will start her on liquids and advance her diet subsequently. cc: John Cancino MD
--- NOTE | 2019-02-07 22:02 | PROGRESS NOTE ---
DATE: 02/07/2019 SUBJECTIVE: An 78-year-old white female admitted to the hospital on 02/06/2019, yesterday, with abdominal pain, nausea and vomiting. CT scan showed partial small-bowel obstruction versus ileus. The patient was seen this morning. She is sleeping. She denies any nausea or obstipation. No history of flatus. She had a similar presentation a few months ago. PAST MEDICAL HISTORY: Reviewed. PAST SURGICAL HISTORY: Reviewed. MEDICATIONS: Reviewed. ALLERGIES: Not known. OBJECTIVE: Vital signs: Temperature is 98.3, pulse is 85, blood pressure 130/73, 93% on room air. HEENT: Within normal limits. Neck: Supple. Chest: Bilateral air entry. Cardiovascular: Heart sounds are regular. Abdomen: Belly is soft. No signs of peritonitis. Neurological: No obvious neurological deficits. INVESTIGATIONS: White cell count 10, hematocrit 40, platelets 195,000. SMA 7: Sodium 142, potassium 4.5, chloride 105, BUN 21, creatinine 1.2, glucose 155, calcium 9.4. Urinalysis is clear. CT scan of the abdomen and pelvis shows severely mildly distended loops of small bowel with air-fluid levels in the mid upper abdomen, uncomplicated diverticula, multiple stable renal cysts, nonobstructing kidney stone on the right side, prior hysterectomy and cholecystectomy, calcified granulomatosis changes in the liver and spleen. ASSESSMENT AND PLAN: An 78-year-old white female admitted to the hospital with partial bowel obstruction. Continue on conservative management, IV fluids, IV Zofran, Toradol for pain, Dulcolax. Dr. Cancino was consulted as a standby. Flat and upright of the abdomen, chest in the morning. Continue IV fluids. DVT and GI prophylaxis with Lovenox and Protonix. If she gets better, we will continue conservative management. I appreciated Dr. Cancino consult. LEVEL OF DOCUMENTATION: 35 minutes. We will reconcile home medicines based on her clinical course. cc: Lawrence Alvarez MD
[2019-02-08] MEDS: HUMULIN R SUBQ SCH (06:50)
--- NOTE | 2019-02-08 07:58 | Diag Imaging Result Doc PS360 ---
FLAT/UPRIGHT ABD/1 VIEW CHEST - 02/08/2019 INDICATION: bowel obstruction TECHNIQUE: COMPARISON: 06/06/2018 FINDINGS: Stable sternotomy changes. The chest is grossly clear. Heart size remains top normal. There are surgical clips in the left lower quadrant and left side of the pelvis. There are also cholecystectomy clips. There is a nonobstructive bowel gas pattern. No free air or abnormal calcifications. IMPRESSION: No acute disease. Electronically signed by Israel Dwyer 02/08/2019 7:56 AM
[2019-02-08 08:18] VITALS: BP 183/60
[2019-02-08] MEDS ORDERED: PREVNAR 13 IM ONE (08:33)
[2019-02-08] MEDS: PROTONIX IV SCH (09:11)
[2019-02-08] MEDS: LOVENOX SUBQ SCH (09:11)
[2019-02-08] MEDS: DULCOLAX PR SCH (09:11)
[2019-02-08] MEDS: SODIUM CHLORIDE 0.9% INJ SCH (09:11)
--- NOTE | 2019-02-08 13:03 | GENERAL SURGERY PROGRESS NOTE ---
DATE: 02/08/2019 SUBJECTIVE: She is doing well. Her abdomen feels fine. She is tolerating p.o. intake. I would advance her diet and discharge her when she is ready. cc: MD Lawrence Sanz MD
--- NOTE | 2019-02-10 21:35 | DISCHARGE SUMMARY ---
ADMISSION DATE: 02/06/2019 DISCHARGE DATE: 02/08/2019 DISCHARGING DIAGNOSIS: Abdominal pain due to subacute bowel obstruction. SECONDARY DIAGNOSES: 1. Pickwickian syndrome. 2. Type 2 diabetes. 3. Hypertension. 4. Hyperlipidemia. 5. Osteoarthritis. 6. Diverticulosis. 7. History of lacunar stroke. 8. Coronary artery disease status post bypass surgery. CONSULTS: Dr. Cancino. BRIEF HISTORY: Please see the history and physical that was done by Dusty Srivastava. In brief, she is an 78-year-old white female with prior history of colectomy surgery, came in with nausea, vomiting, obstipation. Initial picture was partial subacute obstruction. The patient was admitted on the floor for conservative management. The patient was given IV fluids, IV Reglan, Dulcolax. Followup x-rays, resolution of partial bowel obstruction. Dr. Cancino was consulted. She started eating well and there was no abdominal pain and tolerating the diet very well. The rest of the hospital course was uneventful. LABORATORIES: CBC: White cell count 10, hematocrit 40, platelets 195,000. Sodium 142, potassium 4.5, chloride 105, BUN 21, creatinine 1.2, glucose 155. Urinalysis is clear. IMAGING: CT scan of the abdomen and pelvis: Severely mildly distended loops of small bowels, uncomplicated diverticula, prior partial colectomy. Followup chest x-ray is improving. IMPRESSION: Discharged home in a stable condition. DISCHARGE INSTRUCTIONS: 1. Pneumococcal vaccine 01/29/20242018, Tdap 12/06/2015. 2. Aspirin 325 daily, metformin 1000 p.o. b.i.d., lisinopril 40, 10 mg daily, Lipitor 40 mg at bedtime, metoprolol 25 daily. 3. MiraLAX 17 g daily, Zofran as needed for nausea. 4. Follow up in my office in 10 days. cc: MD Dr. Barak Azevedo
== END 2019-02-08 10:58 | disposition home or self-care (01) | DRG 390 ==
LOC: ED 16:12 → 4N 22:21 → SUATTDRO 22:21
PROVIDERS: ADMIT Internal Medicine; ATTEND Internal Medicine